=== PATIENT | male | born 1955 | race Caucasian/White ===

== ENCOUNTER 2024-06-22 13:16 | Inpatient (IN) | payer MEDICARE ==
[~2024-06-22] VITALS: Ht 165.1 cm; Wt 56.3 kg
[2024-06-22 13:56] LABS: BASOPHILS # (AUTO) 0.1 K/UL (0.0-0.2); BASOPHILS % (AUTO) 0.4 % (0.0-2.0); EOSINOPHILS # (AUTO) 0.1 K/uL (0.0-0.7); EOSINOPHILS % (AUTO) 0.7 % (0.0-7.0); HEMATOCRIT 29.2 % (36.7-47.1); HEMOGLOBIN 9.6 g/dL (12.5-16.3); LYMPHOCYTES # (AUTO) 1.4 K/uL (0.8-4.8); LYMPHOCYTES % (AUTO) 7.3 % (20.5-51.5); MEAN CORPUSCULAR HGB CONC 33 g/dL (32.5-36.3); MEAN CORPUSCULAR VOLUME 76.3 fL (73.0-96.2); MONOCYTES # (AUTO) 1.6 K/uL (0.1-1.30); MONOCYTES % (AUTO) 8.3 % (0.0-11.0); NEUTROPHILS # (AUTO) 15.7 K/uL (1.8-8.9); NEUTROPHILS % (AUTO) 83.3 % (38.5-71.5); PLATELET COUNT (AUTO) 408 K/uL (152-348); RED BLOOD CELL COUNT(AUTO) 3.83 MIL/uL (4.06-5.63); WHITE BLOOD COUNT (AUTO) 18.8 K/uL (3.6-10.2)
[2024-06-22 14:01] LABS: DIFFERENTIAL COMMENT 1
[2024-06-22] MEDS ORDERED: ALPR0.5T8 PO (14:09)
[2024-06-22] MEDS ORDERED: CYAN-51 PO (14:09)
[2024-06-22] MEDS ORDERED: PRAV80TA21 PO (14:09)
[2024-06-22] MEDS ORDERED: AMLO-212 PO (14:09)
[2024-06-22] MEDS ORDERED: SODI325T PO (14:09)
[2024-06-22] MEDS ORDERED: PROP40TA7 PO (14:09)
[2024-06-22] MEDS ORDERED: IPRA0.2S48 NEB (14:09)
[2024-06-22] MEDS ORDERED: PRED2.5T PO (14:09)
[2024-06-22] MEDS ORDERED: GEMF600T90 PO (14:09)
[2024-06-22] MEDS ORDERED: LIDO30AD10 TD (14:09)
[2024-06-22] MEDS ORDERED: TIOT18CA3 IH (14:09)
[2024-06-22] MEDS ORDERED: OMEP40CA21 PO (14:09)
[2024-06-22] MEDS ORDERED: OMEG1CAP76 PO (14:09)
[2024-06-22] MEDS ORDERED: ALBU2.5V13 NEB (14:09)
[2024-06-22] MEDS ORDERED: CALC-963 PO (14:09)
[2024-06-22] MEDS ORDERED: LEVO50TA8 PO (14:09)
[2024-06-22] MEDS ORDERED: METH-807 PO (14:09)
[2024-06-22] MEDS ORDERED: ALEN70TA80 PO (14:09)
[2024-06-22] MEDS ORDERED: FEXO-65 PO (14:09)
[2024-06-22] MEDS ORDERED: SERT50TA PO (14:09)
[2024-06-22 14:18] LABS: CALCIUM 8.2 mg/dL (8.5-10.1); CARBON DIOXIDE 20 mmol/L (21-32); CHLORIDE 93 mmol/L (98-107); GLUCOSE 80 mg/dL (74-106); NT-PRO BNP 41039 pg/mL (0-125); POTASSIUM 5.3 mmol/L (3.5-5.1); SODIUM SERUM 131 mmol/L (136-145); UREA NITROGEN, BLOOD 76 mg/dL (7-18)
[2024-06-22] MEDS ORDERED: AZITHROMYCIN IV 500 MG in IV DEXTROSE 5% 250 ML IV ONE (14:30)
[2024-06-22] MEDS ORDERED: CEFTRIAXONE 1 G in IV DEXTROSE 5% 50 ML IV ONE (14:30)
[2024-06-22] MEDS: PIPERACILLIN SODIUM/TAZOBACTAM 3.375 G in IV DEXTROSE 5% 50 ML IV ONE (14:30)
[2024-06-22] MEDS ORDERED: VANCOMYCIN IV 200 ML ONE (14:31)
[2024-06-22] MEDS ORDERED: PIPERACILLIN/TAZOBACTAM/D5W 50 ML IV ONE (14:31)
[2024-06-22] MEDS ORDERED: ASPIRIN 81 MG TAB.CHEW ONE (14:32)
[2024-06-22] MEDS: ASPIRIN 81 MG TAB.CHEW PO ONE (14:43)
[2024-06-22] MEDS: VANCOMYCIN IV 1,000 MG in IV DEXTROSE 5% 250 ML IV ONE (14:44)
[2024-06-22] MEDS ORDERED: ALPRAZOLAM 0.5 MG TABLET PO PRN (16:15)
[2024-06-22] MEDS ORDERED: REMEDY ESSENTIAL ZINC PASTE 113 GM TP PRN (16:15)
[2024-06-22] MEDS ORDERED: ACETAMINOPHEN 325 MG TABLET PO PRN (16:15)
[2024-06-22 17:17] VITALS: BP 123/63; TEMP 97.6; O2SAT 97
[2024-06-22] MEDS: GEMFIBROZIL 600 MG TABLET PO SCH (17:56)
[2024-06-22] MEDS ORDERED: FOLI0.8T2 PO (18:08)
[2024-06-22] MEDS ORDERED: HYDR-894 PO (18:08)
[2024-06-22] MEDS ORDERED: SIRO1TAB6 PO (18:08)
[2024-06-22 18:14] VITALS: O2SAT 96
[2024-06-22] MEDS: ALBUTEROL SULFATE 2.5 MG/ 0.5 ML NEBU NEB PRN (18:14)
[2024-06-22] MEDS: IPRATROPIUM BROMIDE 0.5 MG/2.5 ML NEBU NEB PRN (18:14)
[2024-06-22] MEDS: METHOCARBAMOL 750 MG TABLET PO SCH (18:16)
[2024-06-22 18:29] VITALS: O2SAT 99
[2024-06-22 20:00] VITALS: BP 123/61; TEMP 97.5; O2SAT 95
[2024-06-22] MEDS: ATORVASTATIN 40 MG TABLET PO SCH (20:45)
[2024-06-22] MEDS: PROPRANOLOL HCL 40 MG TABLET PO SCH (20:45)
[2024-06-22] MEDS: HEPARIN SODIUM,PORCINE 5,000 UNITS/ML VIAL SQ SCH (20:45)
[2024-06-23] VITALS (7 sets, daily range): BP systolic 100–140; BP diastolic 53–65; TEMP 97.8–98.8; O2SAT 94–100
[2024-06-23] MEDS: LEVOTHYROXINE SODIUM 50 MCG TABLET PO SCH (06:04)
[2024-06-23] MEDS: PANTOPRAZOLE SODIUM 40 MG TABLET.DR PO SCH (06:04)
[2024-06-23 07:11] LABS: BASOPHILS % (AUTO) 0.4 % (0.0-2.0); EOSINOPHILS # (AUTO) 0.1 K/uL (0.0-0.7); EOSINOPHILS % (AUTO) 0.7 % (0.0-7.0); HEMATOCRIT 26.7 % (36.7-47.1); HEMOGLOBIN 9.2 g/dL (12.5-16.3); LYMPHOCYTES % (AUTO) 10.3 % (20.5-51.5); MEAN CORPUSCULAR HEMOGLOBIN 25.8 uug (23.8-33.4); MEAN CORPUSCULAR HGB CONC 35 g/dL (32.5-36.3); MEAN CORPUSCULAR VOLUME 74.5 fL (73.0-96.2); MONOCYTES # (AUTO) 1.5 K/uL (0.1-1.30); MONOCYTES % (AUTO) 15.9 % (0.0-11.0); NEUTROPHILS # (AUTO) 7.1 K/uL (1.8-8.9); NEUTROPHILS % (AUTO) 72.7 % (38.5-71.5); PLATELET COUNT (AUTO) 435 K/uL (152-348); RED BLOOD CELL COUNT(AUTO) 3.58 MIL/uL (4.06-5.63); RED CELL DISTRIBUTION WIDTH 22.9 % (12.1-16.2); WHITE BLOOD COUNT (AUTO) 9.7 K/uL (3.6-10.2)
[2024-06-23 07:28] LABS: DIFFERENTIAL COMMENT 1
[2024-06-23 07:52] LABS: CALCIUM 8.5 mg/dL (8.5-10.1); CREATININE 6.8 mg/dL (0.6-1.3); PHOSPHOROUS 3.8 mg/dL (2.5-4.9); POTASSIUM 3.9 mmol/L (3.5-5.1)
[2024-06-23 08:17] LABS: THYROID STIMULATING HORMONE 0.696 mIU/mL (0.358-3.740)
[2024-06-23 08:37] LABS: EOSINOPHILS % (MANUAL) 1 % (0-8); LYMPHOCYTES % (MANUAL) 10 % (20-40); MONOCYTES % (MANUAL) 17 % (2-10); NEUTROPHILS % (MANUAL) 72 % (42-75); PLATELET ESTIMATE INCREASED
[2024-06-23 08:38] LABS: ANISOCYTOSIS 3+; HYPOCHROMASIA 1+
[2024-06-23] MEDS: AMLODIPINE 5 MG TABLET PO SCH (09:00)
[2024-06-23] MEDS ORDERED: [UNRECOGNIZED DRUG - OTHER] PO SCH (09:00)
[2024-06-23] MEDS ORDERED: SIROLIMUS 1 MG PO SCH (09:00)
[2024-06-23] MEDS ORDERED: predniSONE 2.5 MG TABLET PO SCH (09:00)
[2024-06-23] MEDS: FOLIC ACID/VITAMIN B COMP W-C TABLET PO SCH (09:22)
[2024-06-23] MEDS: predniSONE 5 MG TABLET PO SCH (09:23)
[2024-06-23] MEDS: SERTRALINE HCL 50 MG TABLET PO SCH (09:23)
[2024-06-23] MEDS: CALCIUM CITRA-VITAMIN D 315 MG-250 UNITS TABLET PO SCH (09:24)
[2024-06-23] MEDS: hydrALAZINE HCL 25 MG TABLET PO SCH (09:25)
[2024-06-23] MEDS: SIROLIMUS 1 MG TABLET PO SCH (12:37)
[2024-06-23] MEDS ORDERED: MORPHINE SULFATE 2 MG/1 ML DISP.SYRIN IV PRN (18:45)
[2024-06-23 22:57] LABS: BASOPHILS # (AUTO) 0.2 K/UL (0.0-0.2); BASOPHILS % (AUTO) 2.6 % (0.0-2.0); EOSINOPHILS # (AUTO) 0.1 K/uL (0.0-0.7); EOSINOPHILS % (AUTO) 0.7 % (0.0-7.0); HEMATOCRIT 21.8 % (36.7-47.1); HEMOGLOBIN 7.5 g/dL (12.5-16.3); LYMPHOCYTES # (AUTO) 1.6 K/uL (0.8-4.8); LYMPHOCYTES % (AUTO) 16.3 % (20.5-51.5); MEAN CORPUSCULAR HEMOGLOBIN 25.5 uug (23.8-33.4); MEAN CORPUSCULAR HGB CONC 35 g/dL (32.5-36.3); MEAN CORPUSCULAR VOLUME 73.9 fL (73.0-96.2); MONOCYTES # (AUTO) 1.1 K/uL (0.1-1.30); NEUTROPHILS # (AUTO) 6.6 K/uL (1.8-8.9); NEUTROPHILS % (AUTO) 68.4 % (38.5-71.5); PLATELET COUNT (AUTO) 435 K/uL (152-348); RED BLOOD CELL COUNT(AUTO) 2.95 MIL/uL (4.06-5.63); RED CELL DISTRIBUTION WIDTH 23.2 % (12.1-16.2); WHITE BLOOD COUNT (AUTO) 9.6 K/uL (3.6-10.2)
[2024-06-23 22:59] LABS: DIFFERENTIAL COMMENT 1
[2024-06-23] MEDS: ONDANSETRON 4 MG/2 ML VIAL IV PRN (23:09)
[2024-06-24] VITALS (10 sets, daily range): BP systolic 111–147; BP diastolic 55–97; TEMP 97.6–98.3; O2SAT 96–100
[2024-06-24 00:43] LABS: *OCCULT BLOOD STOOL POSITIVE (NEGATIVE)
[2024-06-24 02:05] LABS: BAND % (MANUAL) 3 % (0-10); LYMPHOCYTES % (MANUAL) 20 % (20-40); MONOCYTES % (MANUAL) 6 % (2-10); NEUTROPHILS % (MANUAL) 71 % (42-75)
[2024-06-24 04:07] LABS: HEPATITIS B CORE AB, IgM Negative (Negative); HEPATITIS B CORE AB, TOTAL Negative (Negative); HEPATITIS Be ANTIGEN Negative (Negative)
[2024-06-24 06:47] LABS: BASOPHILS % (AUTO) 0.4 % (0.0-2.0); EOSINOPHILS # (AUTO) 0.1 K/uL (0.0-0.7); EOSINOPHILS % (AUTO) 0.8 % (0.0-7.0); HEMATOCRIT 26.5 % (36.7-47.1); LYMPHOCYTES # (AUTO) 1.5 K/uL (0.8-4.8); MEAN CORPUSCULAR HEMOGLOBIN 26.4 uug (23.8-33.4); MEAN CORPUSCULAR HGB CONC 34 g/dL (32.5-36.3); MEAN CORPUSCULAR VOLUME 77.3 fL (73.0-96.2); MONOCYTES # (AUTO) 1.7 K/uL (0.1-1.30); MONOCYTES % (AUTO) 18.3 % (0.0-11.0); NEUTROPHILS # (AUTO) 5.9 K/uL (1.8-8.9); NEUTROPHILS % (AUTO) 64.5 % (38.5-71.5); PLATELET COUNT (AUTO) 383 K/uL (152-348); RED BLOOD CELL COUNT(AUTO) 3.42 MIL/uL (4.06-5.63); RED CELL DISTRIBUTION WIDTH 22.2 % (12.1-16.2); WHITE BLOOD COUNT (AUTO) 9.1 K/uL (3.6-10.2)
[2024-06-24 06:52] LABS: DIFFERENTIAL COMMENT 1
[2024-06-24] MEDS: SIROLIMUS 1 MG PO SCH (10:14)
[2024-06-24 14:04] LABS: ANISOCYTOSIS 2+; BAND % (MANUAL) 6 % (0-10); LYMPHOCYTES % (MANUAL) 19 % (20-40); MONOCYTES % (MANUAL) 19 % (2-10); NEUTROPHILS % (MANUAL) 55 % (42-75); PLATELET ESTIMATE ADEQUATE; REACTIVE LYMPHOCYTES 1 % (0-0)
== END 2024-06-24 11:45 | DRG 314 ==
LOC: ER 13:16 → TELE3 17:01
PROVIDERS: ADMIT Nurse Practitioner Acute Care; ATTEND Nurse Practitioner Acute Care
PROC: 5A1D70Z Performance of Urinary Filtration, Intermittent, Less than 6 Hours Per Day (ICD-10-PCS; principal; 2024-06-22)
PROC: 05HB33Z Insertion of Infusion Device into Right Basilic Vein, Percutaneous Approach (ICD-10-PCS; 2024-06-23)
PROC: 30233N1 Transfusion of Nonautologous Red Blood Cells into Peripheral Vein, Percutaneous Approach (ICD-10-PCS; 2024-06-24)
DX: T86.22 Heart transplant failure (principal); I50.33 Acute on chronic diastolic (congestive) heart failure; J96.01 Acute respiratory failure with hypoxia; N18.6 End stage renal disease; I13.2 Hypertensive heart and chronic kidney disease with heart failure and with stage 5 chronic kidney disease, or end stage renal disease; E87.20 Acidosis, unspecified; E87.1 Hypo-osmolality and hyponatremia; Z99.2 Dependence on renal dialysis; E11.22 Type 2 diabetes mellitus with diabetic chronic kidney disease; E78.5 Hyperlipidemia, unspecified; K21.9 Gastro-esophageal reflux disease without esophagitis; F41.9 Anxiety disorder, unspecified; J44.9 Chronic obstructive pulmonary disease, unspecified; M81.0 Age-related osteoporosis without current pathological fracture; D75.839 Thrombocytosis, unspecified; E87.5 Hyperkalemia; D72.829 Elevated white blood cell count, unspecified; D63.1 Anemia in chronic kidney disease; Z79.899 Other long term (current) drug therapy; Z79.623 Long term (current) use of mammalian target of rapamycin (mTOR) inhibitor
CPT/HCPCS: 36415; 70030-TC; 71045; 83605; 83735; 84100; 84443; 84484; 85025; 86704; 86705; 86850; 86900; 86901; 86920; 87040; 87350; 90937; 94664; A4606; A4663; A6209; G0378; J1644; J2405; J2543; J3370; J3590; J7040; J7120; J7512; J7520; P9016

== ENCOUNTER 2024-09-04 17:32 | Inpatient (IN) | payer MEDICARE ==
[~2024-09-04] VITALS: Ht 172.7 cm; Wt 58.1 kg
[~2024-09-04 17:32] MED LIST: ALBU2.5V13 NEB; ALEN70TA80 PO; AMLO-212 PO; CALC-963 PO; CYAN-51 PO; FEXO-65 PO; FOLI0.8T2 PO; GEMF600T90 PO; HYDR-894 PO; IPRA0.2S48 NEB; LEVO50TA8 PO; LIDO30AD10 TD; METH-807 PO; OMEG1CAP76 PO; OMEP40CA21 PO; PRAV80TA21 PO; PRED2.5T PO; PROP40TA7 PO; SERT50TA PO; SIRO1TAB6 PO; TIOT18CA3 IH
[2024-09-04 18:25] LABS: BASOPHILS # (AUTO) 0.1 K/UL (0.0-0.2); BASOPHILS % (AUTO) 0.5 % (0.0-2.0); HEMATOCRIT 30.9 % (36.7-47.1); LYMPHOCYTES # (AUTO) 0.9 K/uL (0.8-4.8); LYMPHOCYTES % (AUTO) 3.5 % (20.5-51.5); MEAN CORPUSCULAR HEMOGLOBIN 25.3 uug (23.8-33.4); MEAN CORPUSCULAR HGB CONC 32 g/dL (32.5-36.3); MEAN CORPUSCULAR VOLUME 78.5 fL (73.0-96.2); MONOCYTES # (AUTO) 1.8 K/uL (0.1-1.30); MONOCYTES % (AUTO) 6.9 % (0.0-11.0); NEUTROPHILS # (AUTO) 22.8 K/uL (1.8-8.9); NEUTROPHILS % (AUTO) 89.1 % (38.5-71.5); PLATELET COUNT (AUTO) 393 K/uL (152-348); RED BLOOD CELL COUNT(AUTO) 3.93 MIL/uL (4.06-5.63); RED CELL DISTRIBUTION WIDTH 20.5 % (12.1-16.2); WHITE BLOOD COUNT (AUTO) 25.6 K/uL (3.6-10.2)
[2024-09-04 18:26] LABS: DIFFERENTIAL COMMENT 1
[2024-09-04 18:33] LABS: CALCIUM 9.2 mg/dL (8.5-10.1); CARBON DIOXIDE 30 mmol/L (21-32); CHLORIDE 98 mmol/L (98-107); CREATININE 4.1 mg/dL (0.6-1.3); GLUCOSE 108 mg/dL (74-106); POTASSIUM 3.5 mmol/L (3.5-5.1); SODIUM SERUM 141 mmol/L (136-145); UREA NITROGEN, BLOOD 17 mg/dL (7-18)
[2024-09-04 18:50] LABS: ALANINE AMINOTRANSFERASE 14 U/L (16-63); ALBUMIN 3.2 g/dL (3.4-5.0); ALKALINE PHOSPHATASE 76 U/L (50-136); ASPARTATE AMINOTRANSFERASE 9 U/L (15-37); BILIRUBIN,DIRECT 0.2 mg/dL (0.0-0.2); BILIRUBIN,TOTAL 0.8 mg/dL (0.2-1.0); NT-PRO BNP 20489 pg/mL (0-125); TOTAL PROTEIN, SERUM 8.7 g/dL (6.4-8.2)
[2024-09-04] MEDS ORDERED: CEFEPIME HCL 1 G VIAL ONE (19:23)
[2024-09-04] MEDS: CEFEPIME HCL 2 G in IV DEXTROSE 5% 100 ML IV ONE (19:33)
[2024-09-04 20:47] LABS: *BILIRUBIN,URIN NEGATIVE (NEGATIVE); *CLARITY,URINE CLEAR (CLEAR); *COLOR,URINE YELLOW (YELLOW); *KETONES,URINE NEGATIVE (NEGATIVE); *PROTEIN,URINE 3+ (NEGATIVE); *UROBILINOGEN,URINE 0.2 E.U./dl (NORMAL); LEUKOCYTE ESTERASE ,URINE NEGATIVE (NEGATIVE); NITRITE, URINE NEGATIVE (NEGATIVE); PH,URINE 8.5 (5.0-8.0); UGLUCOSE TRACE (NEGATIVE)
[2024-09-04 20:52] LABS: *BLOOD, URINE TRACE (NEGATIVE)
[2024-09-04 21:02] LABS: RBC,URINE NONE SEEN /HPF (0-3)
[2024-09-04 21:03] LABS: BACTERIA,URINE NONE SEEN /HPF (NONE SEEN); SQUAMOUS EPITHELIAL CELL,UR FEW /HPF (NONE SEEN); WBC,URINE 0-3 /HPF (0-3)
[2024-09-05] MEDS ORDERED: ALBUTEROL SULFATE 2.5 MG/ 0.5 ML NEBU NEB PRN (00:15)
[2024-09-05] MEDS ORDERED: IPRATROPIUM BROMIDE 0.5 MG/2.5 ML NEBU NEB PRN (00:15)
[2024-09-05] MEDS ORDERED: MAGNESIUM HYDROXIDE 30 ML LIQUID UDC PO PRN (00:30)
[2024-09-05] MEDS ORDERED: REMEDY ESSENTIAL ZINC PASTE 113 GM TP PRN (00:30)
[2024-09-05] MEDS ORDERED: ACETAMINOPHEN 325 MG TABLET ONE (02:43)
[2024-09-05] MEDS: ACETAMINOPHEN 325 MG TABLET PO PRN (03:00)
[2024-09-05] MEDS ORDERED: CEFEPIME HCL 1 G VIAL ONE (06:31)
[2024-09-05] MEDS: CEFEPIME HCL 1 G in IV DEXTROSE 5% 50 ML IV SCH (06:35)
[2024-09-05 07:51] LABS: BASOPHILS # (AUTO) 0.1 K/UL (0.0-0.2); BASOPHILS % (AUTO) 0.3 % (0.0-2.0); EOSINOPHILS % (AUTO) 0.1 % (0.0-7.0); HEMATOCRIT 28.1 % (36.7-47.1); HEMOGLOBIN 9.1 g/dL (12.5-16.3); LYMPHOCYTES % (AUTO) 4.4 % (20.5-51.5); MEAN CORPUSCULAR HEMOGLOBIN 25.4 uug (23.8-33.4); MEAN CORPUSCULAR HGB CONC 32 g/dL (32.5-36.3); MEAN CORPUSCULAR VOLUME 78.5 fL (73.0-96.2); MONOCYTES # (AUTO) 1.6 K/uL (0.1-1.30); MONOCYTES % (AUTO) 6.8 % (0.0-11.0); NEUTROPHILS # (AUTO) 20.5 K/uL (1.8-8.9); NEUTROPHILS % (AUTO) 88.4 % (38.5-71.5); PLATELET COUNT (AUTO) 379 K/uL (152-348); RED BLOOD CELL COUNT(AUTO) 3.57 MIL/uL (4.06-5.63); RED CELL DISTRIBUTION WIDTH 20.9 % (12.1-16.2); WHITE BLOOD COUNT (AUTO) 23.1 K/uL (3.6-10.2)
[2024-09-05 07:56] LABS: DIFFERENTIAL COMMENT 1
[2024-09-05] MEDS ORDERED: SERTRALINE HCL 50 MG TABLET ONE (08:54)
[2024-09-05] MEDS ORDERED: FOLIC ACID 1 MG TABLET ONE (08:54)
[2024-09-05] MEDS ORDERED: hydrALAZINE HCL 25 MG TABLET ONE (08:54)
[2024-09-05] MEDS ORDERED: LEVOTHYROXINE SODIUM 50 MCG TABLET ONE (08:54)
[2024-09-05] MEDS ORDERED: SIROLIMUS 2 MG PO SCH (09:00)
[2024-09-05] MEDS ORDERED: Medication Not On Formulary EA (Omeprazole 40 MG) PO SCH (09:00)
[2024-09-05] MEDS ORDERED: AMLODIPINE 5 MG TABLET PO SCH (09:00)
[2024-09-05] MEDS: hydrALAZINE HCL 25 MG TABLET PO SCH (09:02)
[2024-09-05] MEDS: PROPRANOLOL HCL 40 MG TABLET PO SCH (09:02)
[2024-09-05] MEDS: SERTRALINE HCL 50 MG TABLET PO SCH (09:03)
[2024-09-05] MEDS: FOLIC ACID/VITAMIN B COMP W-C TABLET PO SCH (09:03)
[2024-09-05] MEDS: LEVOTHYROXINE SODIUM 50 MCG TABLET PO SCH (09:05)
[2024-09-05] MEDS: GEMFIBROZIL 600 MG TABLET PO SCH (10:52)
[2024-09-05] MEDS: CYANOCOBALAMIN 1,000 MCG TABLET PO SCH (10:52)
[2024-09-05 13:00] VITALS: O2SAT 98
[2024-09-05] MEDS: VANCOMYCIN IV 500 MG in IV DEXTROSE 5% 100 ML IV ONE (15:30)
[2024-09-05] MEDS: SIROLIMUS 1 MG TABLET PO SCH (16:25)
[2024-09-05 16:56] VITALS: BP 128/62; TEMP 98.1; O2SAT 98
[2024-09-05 20:30] VITALS: BP 121/60; TEMP 98.7; O2SAT 96
[2024-09-05 21:12] VITALS: O2SAT 98
[2024-09-05] MEDS: ATORVASTATIN 20 MG TABLET PO SCH (21:50)
[2024-09-06] VITALS: BP 106/47; TEMP 98.4; O2SAT 98
[2024-09-06 04:00] VITALS: BP 110/50; TEMP 97.7; O2SAT 99
[2024-09-06] MEDS: ALENDRONATE SODIUM 70 MG TABLET PO SCH (06:40)
[2024-09-06] MEDS: PANTOPRAZOLE SODIUM 40 MG TABLET.DR PO SCH (06:40)
[2024-09-06 07:08] LABS: BASOPHILS # (AUTO) 0.1 K/UL (0.0-0.2); BASOPHILS % (AUTO) 0.3 % (0.0-2.0); EOSINOPHILS # (AUTO) 0.1 K/uL (0.0-0.7); EOSINOPHILS % (AUTO) 0.5 % (0.0-7.0); HEMATOCRIT 26.3 % (36.7-47.1); HEMOGLOBIN 8.5 g/dL (12.5-16.3); LYMPHOCYTES # (AUTO) 1.1 K/uL (0.8-4.8); LYMPHOCYTES % (AUTO) 4.8 % (20.5-51.5); MEAN CORPUSCULAR HEMOGLOBIN 25.3 uug (23.8-33.4); MEAN CORPUSCULAR HGB CONC 32 g/dL (32.5-36.3); MONOCYTES # (AUTO) 2.6 K/uL (0.1-1.30); MONOCYTES % (AUTO) 11.5 % (0.0-11.0); NEUTROPHILS % (AUTO) 82.9 % (38.5-71.5); PLATELET COUNT (AUTO) 362 K/uL (152-348); RED BLOOD CELL COUNT(AUTO) 3.38 MIL/uL (4.06-5.63); RED CELL DISTRIBUTION WIDTH 19.8 % (12.1-16.2); WHITE BLOOD COUNT (AUTO) 22.9 K/uL (3.6-10.2)
[2024-09-06 07:29] LABS: MAGNESIUM 2.1 mg/dL (1.8-2.4); PHOSPHOROUS 7.2 mg/dL (2.5-4.9)
[2024-09-06 07:32] VITALS: BP 110/56; TEMP 97.5; O2SAT 98
[2024-09-06 07:37] LABS: DIFFERENTIAL COMMENT 1
[2024-09-06] MEDS: OMEGA-3 FATTY ACIDS/FISH OIL CAPSULE PO SCH (09:00)
[2024-09-06] MEDS: AMLODIPINE 10 MG TABLET PO SCH (09:00)
[2024-09-06] MEDS: CALCIUM CITRA-VITAMIN D 315 MG-250 UNITS TABLET PO SCH (09:51)
[2024-09-06] MEDS: LIDOCAINE 5% PATCH TD SCH (09:53)
[2024-09-06] MEDS ORDERED: VANCOMYCIN IV 500 MG in IV DEXTROSE 5% 100 ML IV PRN (10:00)
[2024-09-06 11:32] VITALS: BP 112/59; TEMP 97.4; O2SAT 98
[2024-09-06] MEDS: VANCOMYCIN FOR PO/GT/NG USE PO SCH (12:01)
[2024-09-06 15:50] VITALS: BP 109/51; TEMP 97.8; O2SAT 97
[2024-09-06 19:30] VITALS: BP 110/55; TEMP 97.4; O2SAT 97
[2024-09-06] MEDS: CEFEPIME HCL 1 G in IV DEXTROSE 5% 50 ML IV SCH (21:41)
[2024-09-07 03:07] VITALS: O2SAT 98
[2024-09-07 06:00] VITALS: BP 124/49; TEMP 97.4; O2SAT 100
[2024-09-07 07:26] LABS: BASOPHILS % (AUTO) 0.2 % (0.0-2.0); EOSINOPHILS # (AUTO) 0.1 K/uL (0.0-0.7); EOSINOPHILS % (AUTO) 0.9 % (0.0-7.0); HEMOGLOBIN 8.3 g/dL (12.5-16.3); LYMPHOCYTES # (AUTO) 0.9 K/uL (0.8-4.8); LYMPHOCYTES % (AUTO) 6.7 % (20.5-51.5); MEAN CORPUSCULAR HEMOGLOBIN 25.5 uug (23.8-33.4); MEAN CORPUSCULAR HGB CONC 33 g/dL (32.5-36.3); MONOCYTES # (AUTO) 1.8 K/uL (0.1-1.30); MONOCYTES % (AUTO) 13.6 % (0.0-11.0); NEUTROPHILS # (AUTO) 10.6 K/uL (1.8-8.9); NEUTROPHILS % (AUTO) 78.6 % (38.5-71.5); PLATELET COUNT (AUTO) 336 K/uL (152-348); RED BLOOD CELL COUNT(AUTO) 3.25 MIL/uL (4.06-5.63); RED CELL DISTRIBUTION WIDTH 20.4 % (12.1-16.2); WHITE BLOOD COUNT (AUTO) 13.5 K/uL (3.6-10.2)
[2024-09-07 07:45] LABS: DIFFERENTIAL COMMENT 1
[2024-09-07] MEDS: predniSONE 5 MG TABLET PO SCH (09:18)
[2024-09-07 12:00] VITALS: BP 155/56; TEMP 98.1; O2SAT 98
[2024-09-07 16:00] VITALS: BP 117/54; TEMP 98.2; O2SAT 97
[2024-09-07 16:22] LABS: *OCCULT BLOOD STOOL NEGATIVE (NEGATIVE)
[2024-09-07 19:00] VITALS: BP 127/65; TEMP 97.7; O2SAT 100
[2024-09-07] MEDS ORDERED: VANCOMYCIN 1000 MG VIAL ONE (22:12)
[2024-09-07] MEDS: VANCOMYCIN HCL 750 MG in IV DEXTROSE 5% 250 ML IV ONE (23:01)
[2024-09-08 04:09] VITALS: O2SAT 98
[2024-09-08 06:00] VITALS: BP 143/62; TEMP 97.5; O2SAT 95
[2024-09-08 07:12] LABS: BASOPHILS % (AUTO) 0.2 % (0.0-2.0); EOSINOPHILS # (AUTO) 0.1 K/uL (0.0-0.7); EOSINOPHILS % (AUTO) 0.7 % (0.0-7.0); HEMATOCRIT 25.3 % (36.7-47.1); HEMOGLOBIN 8.6 g/dL (12.5-16.3); LYMPHOCYTES # (AUTO) 0.8 K/uL (0.8-4.8); MEAN CORPUSCULAR HEMOGLOBIN 25.7 uug (23.8-33.4); MEAN CORPUSCULAR HGB CONC 34 g/dL (32.5-36.3); MEAN CORPUSCULAR VOLUME 75.9 fL (73.0-96.2); MONOCYTES # (AUTO) 1.4 K/uL (0.1-1.30); MONOCYTES % (AUTO) 17.5 % (0.0-11.0); NEUTROPHILS # (AUTO) 5.8 K/uL (1.8-8.9); NEUTROPHILS % (AUTO) 71.6 % (38.5-71.5); PLATELET COUNT (AUTO) 341 K/uL (152-348); RED BLOOD CELL COUNT(AUTO) 3.34 MIL/uL (4.06-5.63); RED CELL DISTRIBUTION WIDTH 20.2 % (12.1-16.2); WHITE BLOOD COUNT (AUTO) 8.1 K/uL (3.6-10.2)
[2024-09-08 07:37] LABS: CALCIUM 8.6 mg/dL (8.5-10.1); CREATININE 6.1 mg/dL (0.6-1.3); PHOSPHOROUS 3.3 mg/dL (2.5-4.9)
[2024-09-08 07:46] LABS: DIFFERENTIAL COMMENT 1
[2024-09-08 08:08] LABS: POTASSIUM 2.7 mmol/L (3.5-5.1)
[2024-09-08] MEDS: POTASSIUM CHLORIDE 20 MEQ TAB.PRT.SR PO ONE ×2 (10:24→20:21)
[2024-09-08 12:00] VITALS: BP 97/45; TEMP 98.4; O2SAT 97; O2SAT 98
[2024-09-08 12:32] LABS: EOSINOPHILS % (MANUAL) 1 % (0-8); LYMPHOCYTES % (MANUAL) 10 % (20-40); MONOCYTES % (MANUAL) 18 % (2-10); NEUTROPHILS % (MANUAL) 72 % (42-75); PLATELET ESTIMATE ADEQUATE
[2024-09-08 16:00] VITALS: BP 118/55; TEMP 97.7; O2SAT 93
[2024-09-08] MEDS: ONDANSETRON 4 MG/2 ML VIAL IV PRN (17:52)
[2024-09-08 19:10] VITALS: BP 129/57; TEMP 97.6; O2SAT 97
[2024-09-08] MEDS: TRAZODONE 50 MG TABLET PO ONE (23:51)
[2024-09-09] VITALS (7 sets, daily range): BP systolic 96–138; BP diastolic 47–67; TEMP 97.5–98.2; O2SAT 94–99
[2024-09-09] MEDS: HYDROCODONE/APAP 10-325 MG TABLET PO PRN (04:08)
[2024-09-09] MEDS ORDERED: VANC125C11 PO (12:44)
[2024-09-09 14:56] LABS: BASOPHILS % (AUTO) 0.5 % (0.0-2.0); EOSINOPHILS # (AUTO) 0.1 K/uL (0.0-0.7); EOSINOPHILS % (AUTO) 1.1 % (0.0-7.0); HEMATOCRIT 23.8 % (36.7-47.1); HEMOGLOBIN 7.8 g/dL (12.5-16.3); LYMPHOCYTES # (AUTO) 0.9 K/uL (0.8-4.8); LYMPHOCYTES % (AUTO) 12.3 % (20.5-51.5); MEAN CORPUSCULAR HEMOGLOBIN 25.1 uug (23.8-33.4); MEAN CORPUSCULAR HGB CONC 33 g/dL (32.5-36.3); MEAN CORPUSCULAR VOLUME 76.6 fL (73.0-96.2); MONOCYTES # (AUTO) 0.7 K/uL (0.1-1.30); MONOCYTES % (AUTO) 9.7 % (0.0-11.0); NEUTROPHILS # (AUTO) 5.6 K/uL (1.8-8.9); NEUTROPHILS % (AUTO) 76.4 % (38.5-71.5); PLATELET COUNT (AUTO) 365 K/uL (152-348); RED BLOOD CELL COUNT(AUTO) 3.11 MIL/uL (4.06-5.63); RED CELL DISTRIBUTION WIDTH 20.4 % (12.1-16.2); WHITE BLOOD COUNT (AUTO) 7.4 K/uL (3.6-10.2)
[2024-09-09 14:59] LABS: DIFFERENTIAL COMMENT 1
[2024-09-09 15:06] LABS: CALCIUM 8.4 mg/dL (8.5-10.1); MAGNESIUM 1.9 mg/dL (1.8-2.4); PHOSPHOROUS 4.1 mg/dL (2.5-4.9); POTASSIUM 3.7 mmol/L (3.5-5.1)
[2024-09-09 15:07] LABS: CREATININE 7.8 mg/dL (0.6-1.3)
[2024-09-09] MEDS: VANCOMYCIN HCL 750 MG in IV DEXTROSE 5% 250 ML IV ONE (17:41)
== END 2024-09-09 18:00 | disposition home health service (06) | DRG 871 ==
LOC: ER 17:32 → TRANSITION 09-05 07:37 → TELE3 09-05 13:49 → MEDSURG3 09-06 10:18
PROVIDERS: ADMIT Nurse Practitioner Acute Care; ATTEND Nurse Practitioner Acute Care
PROC: 5A1D70Z Performance of Urinary Filtration, Intermittent, Less than 6 Hours Per Day (ICD-10-PCS; principal; 2024-09-07)
DX: A41.9 Sepsis, unspecified organism (principal); N18.6 End stage renal disease; A04.72 Enterocolitis due to Clostridium difficile, not specified as recurrent; Z94.1 Heart transplant status; E87.1 Hypo-osmolality and hyponatremia; G93.40 Encephalopathy, unspecified; I13.2 Hypertensive heart and chronic kidney disease with heart failure and with stage 5 chronic kidney disease, or end stage renal disease; Z99.2 Dependence on renal dialysis; E11.22 Type 2 diabetes mellitus with diabetic chronic kidney disease; Z79.623 Long term (current) use of mammalian target of rapamycin (mTOR) inhibitor; E78.5 Hyperlipidemia, unspecified; K21.9 Gastro-esophageal reflux disease without esophagitis; J44.9 Chronic obstructive pulmonary disease, unspecified; Z98.890 Other specified postprocedural states; I50.9 Heart failure, unspecified; E03.9 Hypothyroidism, unspecified; D63.1 Anemia in chronic kidney disease
CPT/HCPCS: 36415; 70030-TC; 71045; 83550; 83605; 83735; 84100; 84484; 85025; 85730; 87040; 90937; A4606; A4663; A6213; G0378; J0692; J2405; J3370; J7040; J7050; J7512; J7520; J8499